=== PATIENT | female | born 1955 | race African-American/Black ===

== ENCOUNTER 2021-04-03 11:01 | Emergency (ER) | payer MEDICARE ==
[2021-04-03 12:31] LABS: #Monocytes 0.6 10x3/uL (0.0-1.1); #Neutrophils 5.3 10x3/uL (1.5-8.4); %Basophils 0.3 % (0.0-2.0); %Eosinophils 0.6 % (0.0-6.0); %Lymphocytes 14.6 % (18.0-47.0); %Monocytes 8.3 % (0.0-10.0); %Neutrophils 75.8 % (40.0-75.0); Mean Corpuscular HGB CONC 32.5 g/dL (32.0-36.0); Mean Corpuscular Hemoglobin 27.5 pg (27.0-33.0); Mean Corpuscular Volume 84.5 fl (81.6-98.3); Mean Platelet Volume 9.6 fl (7.4-10.4); Platelet Count 282 10x3/uL (150-450); RBC Distribution Width 14.4 % (11.5-14.5)
[2021-04-03 12:45] LABS: ALT (SGPT) 29 U/L (8-55); AST (SGOT) 26 U/L (5-34); Albumin 4.5 g/dL (3.4-4.8); Alkaline Phosphatase 117 U/L (40-110); Anion Gap 15 mmol/L (10-20); BUN (Urea Nitrogen) 20 mg/dL (9.8-20.1); Bilirubin, Total 0.7 mg/dL (0.2-1.2); Calc. Creatinine Clearance 0 mL/min (70-130); Calcium 9.3 mg/dL (7.8-10.44); Carbon Dioxide 29 mmol/L (23-31); Chloride 91 mmol/L (98-107); Glucose 116 mg/dL (80-115); Potassium 3.3 mmol/L (3.5-5.1); Protein, Total 7.5 g/dL (5.8-8.1); Sodium 132 mmol/L (136-145)
== END 2021-04-03 14:30 | disposition home or self-care (01) ==
LOC: CSHERS 11:01
DX: I10 Essential (primary) hypertension (principal); E78.5 Hyperlipidemia, unspecified; Z79.899 Other long term (current) drug therapy
CPT/HCPCS: 80053; 84484; 85025; 93005

== ENCOUNTER 2021-04-13 09:45 | Inpatient (IN) | payer MEDICARE ==
[2021-04-13 10:48] LABS: #Monocytes 0.7 10x3/uL (0.0-1.1); #Neutrophils 12.3 10x3/uL (1.5-8.4); %Basophils 0.1 % (0.0-2.0); %Eosinophils 0.1 % (0.0-6.0); %Lymphocytes 4.6 % (18.0-47.0); %Monocytes 4.9 % (0.0-10.0); %Neutrophils 89.8 % (40.0-75.0); Hemoglobin 10.3 g/dL (12.0-15.5); Mean Corpuscular HGB CONC 34.3 g/dL (32.0-36.0); Mean Corpuscular Hemoglobin 27.4 pg (27.0-33.0); Mean Corpuscular Volume 79.8 fl (81.6-98.3); Mean Platelet Volume 9.7 fl (7.4-10.4); Platelet Count 296 10x3/uL (150-450); RBC Distribution Width 13.2 % (11.5-14.5); Red Blood Cell (RBC) Count 3.76 10x6/uL (3.90-5.03); White Blood Cell (WBC) Count 13.8 10x3/uL (3.5-10.5)
[2021-04-13 11:02] LABS: ALT (SGPT) 25 U/L (8-55); AST (SGOT) 42 U/L (5-34); Albumin 4.4 g/dL (3.4-4.8); Alkaline Phosphatase 100 U/L (40-110); Anion Gap 19 mmol/L (10-20); BUN (Urea Nitrogen) 26 mg/dL (9.8-20.1); Bilirubin, Total 1.5 mg/dL (0.2-1.2); Calc. Creatinine Clearance 0 mL/min (70-130); Calcium 8.8 mg/dL (7.8-10.44); Carbon Dioxide 25 mmol/L (23-31); Chloride 77 mmol/L (98-107); Glucose 116 mg/dL (80-115); Potassium 3.4 mmol/L (3.5-5.1); Protein, Total 7.4 g/dL (5.8-8.1)
[2021-04-13 11:06] LABS: Sodium 118 mmol/L (136-145)
[2021-04-13] MEDS ORDERED: Hydrochlorothiazide 25 MG TAB PO SCH (11:15)
[2021-04-13] MEDS ORDERED: Lorazepam 2 MG/ML VIAL ONE (11:27)
[2021-04-13] MEDS ORDERED: Potassium Chloride 20 MEQ TAB ONE (12:10)
[2021-04-13 12:33] LABS: Magnesium 1.2 mg/dL (1.6-2.6)
[2021-04-13] MEDS ORDERED: Magnesium 2 GM/50 ML BAG (IN WATER) ONE (12:54)
[2021-04-13 13:26] LABS: Lactic Acid 1.7 mmol/L (0.5-2.2)
[2021-04-13 13:48] LABS: SARS-CoV-2 NAA Rapid Test Not Detected (NotDetected)
[2021-04-13 14:31] LABS: Anion Gap 18 mmol/L (10-20); BUN (Urea Nitrogen) 22 mg/dL (9.8-20.1); Calc. Creatinine Clearance 0 mL/min (70-130); Calcium 8.9 mg/dL (7.8-10.44); Carbon Dioxide 25 mmol/L (23-31); Chloride 78 mmol/L (98-107); Glucose 106 mg/dL (80-115); Magnesium 1.9 mg/dL (1.6-2.6); Potassium 3.2 mmol/L (3.5-5.1)
[2021-04-13 14:37] LABS: Sodium 118 mmol/L (136-145)
[2021-04-13] MEDS ORDERED: Sodium Chloride 0.9% 1,000 ML IV SCH ×2 (15:00→23:59)
[2021-04-13] MEDS ORDERED: Pharmacy to Dose ABX/VANCOMYCIN IVPB PRN (15:05)
[2021-04-13 15:44] LABS: Bilirubin Neg (Negative); Blood, Urine 25 (Negative); Clarity Clear (Clear); Glucose, Urine (Dipstick) Normal (Negative); Ketone, Urine Negative (Negative); Leukocyte 500 (Negative); Nitrite Negative (Negative); Protein, Urine (Dipstick) 15 mg/dl (Neg-Trace); Urobilinogen Normal mg/dL (Less than 2)
[2021-04-13 15:46] LABS: Urine Culture Reflex No No
[2021-04-13 15:50] LABS: Cardiac Risk 3.4 (Less than 4.5)
[2021-04-13 15:58] LABS: WBC/HPF 21-50 HPF (0-3)
[2021-04-13 15:59] LABS: Bacteria/HPF 1+ HPF (None Seen); Squamous Epithelial 0-3 HPF (0-3)
[2021-04-13] MEDS ORDERED: hydrALAZINE 20 MG/ML VIAL SLOW IVP PRN (17:29)
[2021-04-13] MEDS ORDERED: Potassium Chloride 20 MEQ TAB PO SCH (17:45)
[2021-04-13 18:27] LABS: Sodium 121 mmol/L (136-145)
[2021-04-13 19:15] LABS: Actual Bicarbonate (HCO3a) 23.6 mEq/L (22-28); Base Excess (BEa) 1.4 mEq/L (-2.0 to +3.0); CO2 Tension 29.4 mmHg (35.0-45.0); Calcium, Ionized (arterial) 1.02 mmol/L (1.12-1.30); Carboxyhemoglobin (COHb) 0.1 gm% (0.0-3.0); Hemoglobin (Hb) 10.5 g/dL (12.0-16.0); O2 Tension (PaO2), arterial 102.8 mmHg (> 80.0); Potassium - ABG Lab 3.2 mmol/L (3.70-5.30); Puncture Site LRA; pH, Arterial 7.52 (7.35-7.45)
[2021-04-13 19:44] LABS: Anion Gap 16 mmol/L (10-20); BUN (Urea Nitrogen) 19 mg/dL (9.8-20.1); Calc. Creatinine Clearance 0 mL/min (70-130); Calcium 8.6 mg/dL (7.8-10.44); Carbon Dioxide 27 mmol/L (23-31); Chloride 82 mmol/L (98-107); Glucose 101 mg/dL (80-115); Potassium 3.3 mmol/L (3.5-5.1); Sodium 122 mmol/L (136-145)
[2021-04-13] MEDS: Cefepime 1 GM in Sodium Chloride 0.9% 100 ML IVPB SCH (21:30)
[2021-04-13] MEDS ORDERED: VANCOMYCIN 1.75 GM/350 ML BAG 1.75 GM in Premix Bag 1 BAG IVPB SCH (23:45)
[2021-04-13 23:47] LABS: Sodium 122 mmol/L (136-145)
[2021-04-14] MEDS: Ondansetron PF 4 MG/2 ML Vial IVP PRN ×2 (01:32→10:03)
[2021-04-14 04:49] LABS: Anion Gap 17 mmol/L (10-20); BUN (Urea Nitrogen) 19 mg/dL (9.8-20.1); Calc. Creatinine Clearance 0 mL/min (70-130); Calcium 8.5 mg/dL (7.8-10.44); Carbon Dioxide 25 mmol/L (23-31); Chloride 86 mmol/L (98-107); Glucose 100 mg/dL (80-115); Potassium 3.2 mmol/L (3.5-5.1); Sodium 125 mmol/L (136-145)
[2021-04-14] MEDS ORDERED: Cefepime 2 GM in Sodium Chloride 0.9% 100 ML IVPB SCH (09:30)
[2021-04-14] MEDS ORDERED: Potassium Chloride 20 MEQ TAB PO SCH (12:00)
[2021-04-14] MEDS: Acetaminophen 325 MG TAB PO PRN (12:35)
[2021-04-14 13:00] LABS: Potassium, Urine 21.1 mmol/L
[2021-04-14 16:23] LABS: Potassium 3.3 mmol/L (3.5-5.1)
[2021-04-14] MEDS: Cefepime 1 GM in Sodium Chloride 0.9% 100 ML IVPB SCH (21:28)
[2021-04-14] MEDS: Cefepime 2 GM in Sodium Chloride 0.9% 100 ML IVPB SCH (21:40)
[2021-04-15] MEDS: Vancomycin 1.5 GRAM/300 ML BAG 1.5 GM in Premix Bag 1 BAG IVPB SCH (00:52)
[2021-04-15] MEDS ORDERED: VANCOMYCIN 1.75 GM/350 ML BAG 1.75 GM in Premix Bag 1 BAG IVPB SCH (01:00)
[2021-04-15 04:51] LABS: Anion Gap 15 mmol/L (10-20); BUN (Urea Nitrogen) 13 mg/dL (9.8-20.1); Calc. Creatinine Clearance 108 mL/min (70-130); Calcium 8.8 mg/dL (7.8-10.44); Carbon Dioxide 28 mmol/L (23-31); Chloride 98 mmol/L (98-107); Glucose 76 mg/dL (80-115); Potassium 3.4 mmol/L (3.5-5.1); Sodium 138 mmol/L (136-145)
[2021-04-15] MEDS: Dextrose 5% in Water 1,000 ML IV SCH ×2 (08:55→20:35)
[2021-04-15] MEDS: Cefepime 2 GM in Sodium Chloride 0.9% 100 ML IVPB SCH ×2 (08:55→22:11)
[2021-04-15 11:09] LABS: Potassium 3.4 mmol/L (3.5-5.1)
[2021-04-15] MEDS: Acetaminophen 325 MG TAB PO PRN (11:48)
[2021-04-15 15:48] LABS: Potassium 3.2 mmol/L (3.5-5.1)
[2021-04-15] MEDS ORDERED: Potassium Chloride 20 MEQ TAB PO SCH (21:15)
[2021-04-16 00:34] LABS: Vancomycin, Trough 9.7 ug/mL
[2021-04-16] MEDS: Vancomycin 1.5 GRAM/300 ML BAG 1.5 GM in Premix Bag 1 BAG IVPB SCH (01:17)
[2021-04-16] MEDS: Acetaminophen 325 MG TAB PO PRN (01:26)
[2021-04-16 05:53] LABS: Anion Gap 15 mmol/L (10-20); BUN (Urea Nitrogen) 13 mg/dL (9.8-20.1); Calc. Creatinine Clearance 121 mL/min (70-130); Calcium 8.2 mg/dL (7.8-10.44); Carbon Dioxide 25 mmol/L (23-31); Chloride 96 mmol/L (98-107); Glucose 87 mg/dL (80-115); Potassium 3.6 mmol/L (3.5-5.1); Sodium 132 mmol/L (136-145)
[2021-04-16] MEDS ORDERED: Potassium Chloride 20 MEQ TAB PO SCH (08:00)
[2021-04-16] MEDS ORDERED: Amlodipine 5 MG TAB PO SCH (09:30)
[2021-04-16] MEDS: Cefepime 2 GM in Sodium Chloride 0.9% 100 ML IVPB SCH (11:05)
[2021-04-16 12:59] LABS: #Basophils 0.1 10x3/uL (0.0-0.2); #Eosinphils 0.1 10x3/uL (0.0-0.5); #Monocytes 0.7 10x3/uL (0.0-1.1); #Neutrophils 8.3 10x3/uL (1.5-8.4); %Basophils 0.5 % (0.0-2.0); %Eosinophils 1.4 % (0.0-6.0); %Lymphocytes 10.6 % (18.0-47.0); %Monocytes 6.9 % (0.0-10.0); %Neutrophils 80.3 % (40.0-75.0); Hemoglobin 10.3 g/dL (12.0-15.5); Mean Corpuscular HGB CONC 32.9 g/dL (32.0-36.0); Mean Corpuscular Hemoglobin 27.4 pg (27.0-33.0); Mean Corpuscular Volume 83.2 fl (81.6-98.3); Mean Platelet Volume 9.7 fl (7.4-10.4); Platelet Count 307 10x3/uL (150-450); RBC Distribution Width 14.2 % (11.5-14.5); Red Blood Cell (RBC) Count 3.76 10x6/uL (3.90-5.03); White Blood Cell (WBC) Count 10.4 10x3/uL (3.5-10.5)
[2021-04-16 15:50] VITALS: BP 131/61; TEMP 97.9
[2021-04-16 18:44] LABS: Hemoglobin A1c 5.8 % (4.0-6.0)
[2021-04-17] MEDS ORDERED: VANCOMYCIN 1.75 GM/350 ML BAG 1.75 GM in Premix Bag 1 BAG IVPB SCH (01:00)
[2021-04-17] MEDS ORDERED: Amlodipine 5 MG TAB PO SCH (09:00)
== END 2021-04-16 16:20 | disposition home or self-care (01) | DRG 641 ==
LOC: CSHERS 09:45 → CSHTELE 17:21
PROVIDERS: ADMIT Family Medicine; ATTEND Physician Assistant
DX: E87.1 Hypo-osmolality and hyponatremia (principal); R65.10 Systemic inflammatory response syndrome (SIRS) of non-infectious origin without acute organ dysfunction; Z20.822 Contact with and (suspected) exposure to COVID-19; I10 Essential (primary) hypertension; E11.9 Type 2 diabetes mellitus without complications; E83.42 Hypomagnesemia; E87.8 Other disorders of electrolyte and fluid balance, not elsewhere classified; E87.3 Alkalosis; D64.9 Anemia, unspecified; E87.6 Hypokalemia; E78.5 Hyperlipidemia, unspecified; Z85.41 Personal history of malignant neoplasm of cervix uteri
CPT/HCPCS: 36415; 36416; 36600; 71045; 71275; 80048; 80053; 80061; 80202; 82088; 82436; 82533; 82805; 83036; 83605; 83735; 83880; 83930; 83935; 84133; 84300; 84443; 84484; 84540; 84560; 85025; 87040; 87086; 93005; 93306; 94760; J0692; J2060; J2405; J2597; J3370; J3475; J3490; J7050; J7070; U0002

== ENCOUNTER 2022-05-19 13:03 | Inpatient (IN) | payer MEDICARE, OTHER ==
[2022-05-19 13:39] LABS: #Eosinphils 0.1 10x3/uL (0.0-0.5); #Monocytes 0.4 10x3/uL (0.0-1.1); #Neutrophils 4.1 10x3/uL (1.5-8.4); %Basophils 0.5 % (0.0-2.0); %Eosinophils 0.9 % (0.0-6.0); %Lymphocytes 18.3 % (18.0-47.0); %Monocytes 6.6 % (0.0-10.0); %Neutrophils 73.5 % (40.0-75.0); Hemoglobin 11.2 g/dL (12.0-15.5); Mean Corpuscular HGB CONC 32.5 g/dL (32.0-36.0); Mean Corpuscular Hemoglobin 27.3 pg (27.0-33.0); Mean Corpuscular Volume 83.9 fl (81.6-98.3); Mean Platelet Volume 9.1 fl (7.4-10.4); Platelet Count 367 10x3/uL (150-450); RBC Distribution Width 14.7 % (11.5-14.5); Red Blood Cell (RBC) Count 4.11 10x6/uL (3.90-5.03); White Blood Cell (WBC) Count 5.6 10x3/uL (3.5-10.5)
[2022-05-19 13:53] LABS: ALT (SGPT) 21 U/L (8-55); AST (SGOT) 23 U/L (5-34); Albumin 4.2 g/dL (3.4-4.8); Alkaline Phosphatase 118 U/L (40-110); Anion Gap 13 mmol/L (10-20); BUN (Urea Nitrogen) 9 mg/dL (9.8-20.1); Bilirubin, Total 0.5 mg/dL (0.2-1.2); Calc. Creatinine Clearance 0 mL/min (70-130); Calcium 9.6 mg/dL (7.8-10.44); Carbon Dioxide 30 mmol/L (23-31); Chloride 101 mmol/L (98-107); Estimated GFR 83; Globulin 3.5 g/dL (2.4-3.5); Glucose 120 mg/dL (80-115); Lipase 30 U/L (8-78); Potassium 3.4 mmol/L (3.5-5.1); Protein, Total 7.7 g/dL (5.8-8.1); Sodium 141 mmol/L (136-145)
[2022-05-19] MEDS ORDERED: Furosemide 40 MG/4 ML VIAL ONE (15:41)
[2022-05-19] MEDS ORDERED: Senokot S 8.6-50 MG TAB PO PRN (16:29)
[2022-05-19] MEDS ORDERED: Ondansetron ODT 4 MG TAB PO PRN (16:29)
[2022-05-19] MEDS ORDERED: Ondansetron PF 4 MG/2 ML Vial IVP PRN (16:29)
[2022-05-19 16:59] LABS: Bilirubin Neg (Negative); Blood, Urine 25 (Negative); Clarity Clear (Clear); Glucose, Urine (Dipstick) Normal (Negative); Ketone, Urine Negative (Negative); Leukocyte 500 (Negative); Nitrite Negative (Negative); Protein, Urine (Dipstick) Negative (Neg-Trace); Specific Gravity, Urine 1.005 (1.005-1.030); Urobilinogen Normal mg/dL (Less than 2)
[2022-05-19 17:07] LABS: Bacteria/HPF 1+ HPF (None Seen)
[2022-05-19 17:10] LABS: SARS-CoV-2 NAA Rapid Test Not Detected (NotDetected)
[2022-05-19 20:00] LABS: Magnesium 1.9 mg/dL (1.6-2.6)
[2022-05-19] MEDS ORDERED: Potassium Chloride 20 MEQ TAB PO SCH (20:00)
[2022-05-19] MEDS: Famotidine 20 MG TAB PO SCH (20:36)
[2022-05-19] MEDS: Atorvastatin Calcium 10 MG TAB PO SCH (20:36)
[2022-05-19] MEDS: Acetaminophen 325 MG TAB PO PRN (23:55)
[2022-05-20 04:54] LABS: Anion Gap 13 mmol/L (10-20); BUN (Urea Nitrogen) 8 mg/dL (9.8-20.1); Calc. Creatinine Clearance 0 mL/min (70-130); Calcium 9.3 mg/dL (7.8-10.44); Carbon Dioxide 30 mmol/L (23-31); Chloride 101 mmol/L (98-107); Estimated GFR 95; Glucose 92 mg/dL (80-115); Potassium 3.3 mmol/L (3.5-5.1); Sodium 141 mmol/L (136-145)
[2022-05-20 05:33] LABS: #Monocytes 0.5 10x3/uL (0.0-1.1); #Neutrophils 4.5 10x3/uL (1.5-8.4); %Basophils 0.5 % (0.0-2.0); %Eosinophils 0.5 % (0.0-6.0); %Lymphocytes 20.7 % (18.0-47.0); %Monocytes 8.2 % (0.0-10.0); %Neutrophils 69.9 % (40.0-75.0); Hemoglobin 11.1 g/dL (12.0-15.5); Mean Corpuscular HGB CONC 32.3 g/dL (32.0-36.0); Mean Corpuscular Hemoglobin 27.3 pg (27.0-33.0); Mean Corpuscular Volume 84.5 fl (81.6-98.3); Mean Platelet Volume 9.7 fl (7.4-10.4); Platelet Count 358 10x3/uL (150-450); RBC Distribution Width 14.7 % (11.5-14.5); Red Blood Cell (RBC) Count 4.07 10x6/uL (3.90-5.03); White Blood Cell (WBC) Count 6.4 10x3/uL (3.5-10.5)
[2022-05-20] MEDS ORDERED: Furosemide 40 MG/4 ML VIAL SLOW IVP SCH (06:00)
[2022-05-20] MEDS ORDERED: Electrolyte Replacement Protocol 1 EACH FS SCH (07:45)
[2022-05-20] MEDS ORDERED: Magnesium 2 GM/50 ML(in water) 2 GM in Premix Bag 1 BAG IVPB SCH (07:45)
[2022-05-20] MEDS ORDERED: Potassium Chloride 20 MEQ TAB PO SCH (08:00)
[2022-05-20] MEDS: Ferrous Sulfate 325 MG TAB PO SCH (08:21)
[2022-05-20] MEDS: Famotidine 20 MG TAB PO SCH ×2 (08:22→20:37)
[2022-05-20] MEDS: Losartan 25 MG TAB PO SCH (08:23)
[2022-05-20] MEDS: Acetaminophen 325 MG TAB PO PRN (08:25)
[2022-05-20] MEDS ORDERED: Carvedilol 6.25 MG TAB PO SCH ×2 (09:45→17:00)
[2022-05-20] MEDS: Carvedilol 12.5 MG TAB PO SCH (16:20)
[2022-05-20] MEDS: HYDROcodone/Acetaminophen 5/325 mg Tablet PO PRN (16:20)
[2022-05-20] MEDS: cefTRIAXone\\ROCEPHIN 1 GM in Sodium Chloride 0.9% 100 ML IVPB SCH (16:57)
[2022-05-20] MEDS: Atorvastatin Calcium 10 MG TAB PO SCH (20:36)
[2022-05-20] MEDS: Apixaban 5 MG TAB PO SCH (20:37)
[2022-05-20] MEDS: Senokot S 8.6-50 MG TAB PO SCH (20:37)
[2022-05-21 05:05] LABS: #Monocytes 0.6 10x3/uL (0.0-1.1); #Neutrophils 5.1 10x3/uL (1.5-8.4); %Basophils 0.3 % (0.0-2.0); %Eosinophils 0.6 % (0.0-6.0); %Lymphocytes 16.7 % (18.0-47.0); %Monocytes 8.6 % (0.0-10.0); %Neutrophils 73.5 % (40.0-75.0); Hemoglobin 10.9 g/dL (12.0-15.5); Mean Corpuscular HGB CONC 31.6 g/dL (32.0-36.0); Mean Corpuscular Hemoglobin 27.1 pg (27.0-33.0); Mean Corpuscular Volume 85.8 fl (81.6-98.3); Mean Platelet Volume 9.4 fl (7.4-10.4); Platelet Count 292 10x3/uL (150-450); RBC Distribution Width 14.9 % (11.5-14.5); Red Blood Cell (RBC) Count 4.02 10x6/uL (3.90-5.03)
[2022-05-21 05:17] LABS: Anion Gap 15 mmol/L (10-20); BUN (Urea Nitrogen) 16 mg/dL (9.8-20.1); Calc. Creatinine Clearance 99 mL/min (70-130); Calcium 9.3 mg/dL (7.8-10.44); Carbon Dioxide 28 mmol/L (23-31); Chloride 102 mmol/L (98-107); Estimated GFR 88; Glucose 86 mg/dL (80-115); Magnesium 2.5 mg/dL (1.6-2.6); Potassium 3.7 mmol/L (3.5-5.1); Sodium 141 mmol/L (136-145)
[2022-05-21] MEDS ORDERED: Polyethylene Glycol 3350 17 GM Packet PO PRN (08:08)
[2022-05-21] MEDS: Potassium Chloride 20 MEQ TAB PO SCH (09:54)
[2022-05-21] MEDS: Losartan 25 MG TAB PO SCH (09:55)
[2022-05-21] MEDS: Furosemide 40 MG TAB PO SCH (09:55)
[2022-05-21] MEDS: Senokot S 8.6-50 MG TAB PO SCH ×3 (09:56→20:16)
[2022-05-21] MEDS: Ferrous Sulfate 325 MG TAB PO SCH (09:56)
[2022-05-21] MEDS: Famotidine 20 MG TAB PO SCH ×2 (09:56→20:16)
[2022-05-21] MEDS: Apixaban 5 MG TAB PO SCH ×2 (09:56→20:18)
[2022-05-21] MEDS: Carvedilol 12.5 MG TAB PO SCH ×2 (09:57→16:39)
[2022-05-21] MEDS: cefTRIAXone\\ROCEPHIN 1 GM in Sodium Chloride 0.9% 100 ML IVPB SCH (16:39)
[2022-05-21] MEDS: Atorvastatin Calcium 10 MG TAB PO SCH (20:14)
[2022-05-22] MEDS: Acetaminophen 325 MG TAB PO PRN ×2 (05:40→10:46)
[2022-05-22 06:23] LABS: Anion Gap 14 mmol/L (10-20); BUN (Urea Nitrogen) 18 mg/dL (9.8-20.1); Calc. Creatinine Clearance 117 mL/min (70-130); Calcium 9.1 mg/dL (7.8-10.44); Carbon Dioxide 25 mmol/L (23-31); Chloride 105 mmol/L (98-107); Estimated GFR 96; Glucose 91 mg/dL (80-115); Potassium 4.3 mmol/L (3.5-5.1); Sodium 140 mmol/L (136-145)
[2022-05-22 06:24] LABS: #Eosinphils 0.1 10x3/uL (0.0-0.5); #Monocytes 0.6 10x3/uL (0.0-1.1); #Neutrophils 5.7 10x3/uL (1.5-8.4); %Basophils 0.4 % (0.0-2.0); %Eosinophils 0.8 % (0.0-6.0); %Monocytes 8.3 % (0.0-10.0); %Neutrophils 76.4 % (40.0-75.0); Hemoglobin 10.6 g/dL (12.0-15.5); Mean Corpuscular HGB CONC 31.9 g/dL (32.0-36.0); Mean Corpuscular Volume 84.7 fl (81.6-98.3); Mean Platelet Volume 9.6 fl (7.4-10.4); Platelet Count 322 10x3/uL (150-450); RBC Distribution Width 15.2 % (11.5-14.5); Red Blood Cell (RBC) Count 3.92 10x6/uL (3.90-5.03); White Blood Cell (WBC) Count 7.5 10x3/uL (3.5-10.5)
[2022-05-22] MEDS: Furosemide 40 MG TAB PO SCH (09:05)
[2022-05-22] MEDS: Losartan 25 MG TAB PO SCH (09:05)
[2022-05-22] MEDS: Ferrous Sulfate 325 MG TAB PO SCH (09:05)
[2022-05-22] MEDS: Famotidine 20 MG TAB PO SCH ×2 (09:05→21:12)
[2022-05-22] MEDS: Apixaban 5 MG TAB PO SCH ×2 (09:05→21:13)
[2022-05-22] MEDS: Potassium Chloride 20 MEQ TAB PO SCH (09:05)
[2022-05-22] MEDS: Carvedilol 12.5 MG TAB PO SCH ×2 (09:06→16:39)
[2022-05-22] MEDS: Senokot S 8.6-50 MG TAB PO SCH ×2 (09:09→21:12)
[2022-05-22] MEDS: cefTRIAXone\\ROCEPHIN 1 GM in Sodium Chloride 0.9% 100 ML IVPB SCH (16:36)
[2022-05-22] MEDS: Atorvastatin Calcium 10 MG TAB PO SCH (21:13)
[2022-05-23 04:01] LABS: #Eosinphils 0.1 10x3/uL (0.0-0.5); #Monocytes 0.5 10x3/uL (0.0-1.1); #Neutrophils 6.2 10x3/uL (1.5-8.4); %Basophils 0.5 % (0.0-2.0); %Lymphocytes 13.2 % (18.0-47.0); %Neutrophils 78.9 % (40.0-75.0); Hemoglobin 10.9 g/dL (12.0-15.5); Mean Corpuscular HGB CONC 32.2 g/dL (32.0-36.0); Mean Corpuscular Hemoglobin 27.2 pg (27.0-33.0); Mean Corpuscular Volume 84.5 fl (81.6-98.3); Mean Platelet Volume 9.1 fl (7.4-10.4); Platelet Count 313 10x3/uL (150-450); RBC Distribution Width 14.9 % (11.5-14.5); Red Blood Cell (RBC) Count 4.01 10x6/uL (3.90-5.03); White Blood Cell (WBC) Count 7.8 10x3/uL (3.5-10.5)
[2022-05-23 04:27] LABS: Anion Gap 15 mmol/L (10-20); BUN (Urea Nitrogen) 18 mg/dL (9.8-20.1); Calc. Creatinine Clearance 119 mL/min (70-130); Calcium 9.3 mg/dL (7.8-10.44); Carbon Dioxide 23 mmol/L (23-31); Chloride 106 mmol/L (98-107); Estimated GFR 96; Glucose 99 mg/dL (80-115); Potassium 4.3 mmol/L (3.5-5.1); Sodium 140 mmol/L (136-145)
[2022-05-23] MEDS: Acetaminophen 325 MG TAB PO PRN ×2 (05:14→10:12)
[2022-05-23] MEDS: Furosemide 40 MG TAB PO SCH (06:01)
[2022-05-23] MEDS: Ferrous Sulfate 325 MG TAB PO SCH (10:06)
[2022-05-23] MEDS: Carvedilol 12.5 MG TAB PO SCH ×2 (10:06→17:15)
[2022-05-23] MEDS: Famotidine 20 MG TAB PO SCH ×2 (10:06→20:32)
[2022-05-23] MEDS: Apixaban 5 MG TAB PO SCH ×2 (10:07→20:32)
[2022-05-23] MEDS: Senokot S 8.6-50 MG TAB PO SCH ×3 (10:07→20:33)
[2022-05-23] MEDS: Potassium Chloride 20 MEQ TAB PO SCH (10:08)
[2022-05-23] MEDS: Losartan 25 MG TAB PO SCH (10:08)
[2022-05-23] MEDS: Atorvastatin Calcium 10 MG TAB PO SCH (20:33)
[2022-05-24 04:41] LABS: #Eosinphils 0.1 10x3/uL (0.0-0.5); #Monocytes 0.5 10x3/uL (0.0-1.1); #Neutrophils 5.2 10x3/uL (1.5-8.4); %Basophils 0.4 % (0.0-2.0); %Lymphocytes 16.5 % (18.0-47.0); %Monocytes 7.5 % (0.0-10.0); %Neutrophils 74.3 % (40.0-75.0); Hemoglobin 11.8 g/dL (12.0-15.5); Mean Corpuscular HGB CONC 32.6 g/dL (32.0-36.0); Mean Corpuscular Hemoglobin 27.3 pg (27.0-33.0); Mean Corpuscular Volume 83.6 fl (81.6-98.3); Mean Platelet Volume 9.5 fl (7.4-10.4); Platelet Count 372 10x3/uL (150-450); RBC Distribution Width 14.8 % (11.5-14.5); Red Blood Cell (RBC) Count 4.33 10x6/uL (3.90-5.03); White Blood Cell (WBC) Count 7.1 10x3/uL (3.5-10.5)
[2022-05-24 04:56] LABS: Anion Gap 14 mmol/L (10-20); BUN (Urea Nitrogen) 18 mg/dL (9.8-20.1); Calc. Creatinine Clearance 106 mL/min (70-130); Calcium 9.3 mg/dL (7.8-10.44); Carbon Dioxide 25 mmol/L (23-31); Chloride 103 mmol/L (98-107); Estimated GFR 91; Glucose 93 mg/dL (80-115); Sodium 137 mmol/L (136-145)
[2022-05-24 04:57] LABS: Potassium 4.7 mmol/L (3.5-5.1)
[2022-05-24] MEDS: Ferrous Sulfate 325 MG TAB PO SCH (10:04)
[2022-05-24] MEDS: Carvedilol 12.5 MG TAB PO SCH ×2 (10:05→10:09)
[2022-05-24] MEDS: Potassium Chloride 20 MEQ TAB PO SCH (10:05)
[2022-05-24] MEDS: Furosemide 40 MG TAB PO SCH (10:05)
[2022-05-24] MEDS: Losartan 25 MG TAB PO SCH (10:05)
[2022-05-24] MEDS: Apixaban 5 MG TAB PO SCH ×2 (10:05→20:51)
[2022-05-24] MEDS: Famotidine 20 MG TAB PO SCH ×2 (10:05→20:50)
[2022-05-24] MEDS: Senokot S 8.6-50 MG TAB PO SCH ×3 (10:06→20:59)
[2022-05-24] MEDS: Acetaminophen 325 MG TAB PO PRN ×2 (10:11→18:52)
[2022-05-24] MEDS: Atorvastatin Calcium 10 MG TAB PO SCH (20:50)
[2022-05-25] MEDS: Senokot S 8.6-50 MG TAB PO SCH ×2 (09:48→20:20)
[2022-05-25] MEDS: Acetaminophen 325 MG TAB PO PRN (09:48)
[2022-05-25] MEDS: Ferrous Sulfate 325 MG TAB PO SCH (09:48)
[2022-05-25] MEDS: Furosemide 40 MG TAB PO SCH (09:49)
[2022-05-25] MEDS: Losartan 25 MG TAB PO SCH (09:49)
[2022-05-25] MEDS: Carvedilol 12.5 MG TAB PO SCH (09:49)
[2022-05-25] MEDS: Famotidine 20 MG TAB PO SCH ×2 (09:49→20:20)
[2022-05-25] MEDS: Apixaban 5 MG TAB PO SCH ×2 (09:49→20:20)
[2022-05-25] MEDS: HYDROcodone/Acetaminophen 5/325 mg Tablet PO PRN (10:32)
[2022-05-25] MEDS ORDERED: Sodium Chloride 0.9% 500 ML IV SCH ×2 (12:15→13:45)
[2022-05-25] MEDS: Carvedilol 3.125 MG TAB PO SCH (17:41)
[2022-05-25] MEDS: Atorvastatin Calcium 10 MG TAB PO SCH (20:20)
[2022-05-26] MEDS: Acetaminophen 325 MG TAB PO PRN (01:11)
[2022-05-26 04:47] LABS: Anion Gap 14 mmol/L (10-20); BUN (Urea Nitrogen) 24 mg/dL (9.8-20.1); Calc. Creatinine Clearance 91 mL/min (70-130); Carbon Dioxide 22 mmol/L (23-31); Chloride 104 mmol/L (98-107); Estimated GFR 79; Glucose 121 mg/dL (80-115); Potassium 3.8 mmol/L (3.5-5.1); Sodium 136 mmol/L (136-145)
[2022-05-26 04:48] LABS: #Eosinphils 0.1 10x3/uL (0.0-0.5); #Monocytes 0.8 10x3/uL (0.0-1.1); #Neutrophils 6.6 10x3/uL (1.5-8.4); %Basophils 0.4 % (0.0-2.0); %Eosinophils 1.2 % (0.0-6.0); %Lymphocytes 17.6 % (18.0-47.0); %Monocytes 9.1 % (0.0-10.0); %Neutrophils 71.5 % (40.0-75.0); Hemoglobin 10.7 g/dL (12.0-15.5); Mean Corpuscular HGB CONC 32.5 g/dL (32.0-36.0); Mean Corpuscular Hemoglobin 27.4 pg (27.0-33.0); Mean Corpuscular Volume 84.1 fl (81.6-98.3); Mean Platelet Volume 9.4 fl (7.4-10.4); Platelet Count 346 10x3/uL (150-450); RBC Distribution Width 14.6 % (11.5-14.5); Red Blood Cell (RBC) Count 3.91 10x6/uL (3.90-5.03); White Blood Cell (WBC) Count 9.3 10x3/uL (3.5-10.5)
[2022-05-26] MEDS: Senokot S 8.6-50 MG TAB PO SCH ×2 (08:00→22:00)
[2022-05-26] MEDS: Apixaban 5 MG TAB PO SCH ×2 (09:10→22:00)
[2022-05-26] MEDS: Carvedilol 3.125 MG TAB PO SCH (09:10)
[2022-05-26] MEDS: Famotidine 20 MG TAB PO SCH ×2 (09:10→22:00)
[2022-05-26] MEDS: Ferrous Sulfate 325 MG TAB PO SCH (09:11)
[2022-05-26] MEDS: Atorvastatin Calcium 10 MG TAB PO SCH (22:00)
[2022-05-27] MEDS: Senokot S 8.6-50 MG TAB PO SCH ×2 (08:30→21:52)
[2022-05-27] MEDS: Apixaban 5 MG TAB PO SCH ×2 (08:31→21:39)
[2022-05-27] MEDS: Ferrous Sulfate 325 MG TAB PO SCH (08:31)
[2022-05-27] MEDS: Famotidine 20 MG TAB PO SCH ×2 (08:31→21:39)
[2022-05-27 08:46] LABS: Anion Gap 13 mmol/L (10-20); BUN (Urea Nitrogen) 20 mg/dL (9.8-20.1); Calc. Creatinine Clearance 109 mL/min (70-130); Calcium 9.3 mg/dL (7.8-10.44); Carbon Dioxide 26 mmol/L (23-31); Chloride 103 mmol/L (98-107); Estimated GFR 95; Glucose 79 mg/dL (80-115); Potassium 3.8 mmol/L (3.5-5.1); Sodium 138 mmol/L (136-145)
[2022-05-27] MEDS ORDERED: Magnesium 2 GM/50 ML(in water) 2 GM in Premix Bag 1 BAG IVPB SCH (09:00)
[2022-05-27] MEDS ORDERED: Potassium Chloride 20 MEQ TAB PO SCH (09:30)
[2022-05-27] MEDS: Atorvastatin Calcium 10 MG TAB PO SCH (21:40)
[2022-05-28 05:35] LABS: Anion Gap 12 mmol/L (10-20); BUN (Urea Nitrogen) 29 mg/dL (9.8-20.1); Calc. Creatinine Clearance 96 mL/min (70-130); Carbon Dioxide 25 mmol/L (23-31); Chloride 103 mmol/L (98-107); Estimated GFR 83; Glucose 114 mg/dL (80-115); Magnesium 2.4 mg/dL (1.6-2.6); Potassium 3.7 mmol/L (3.5-5.1); Sodium 136 mmol/L (136-145)
[2022-05-28 05:37] LABS: #Eosinphils 0.1 10x3/uL (0.0-0.5); #Monocytes 0.7 10x3/uL (0.0-1.1); #Neutrophils 5.8 10x3/uL (1.5-8.4); %Basophils 0.5 % (0.0-2.0); %Eosinophils 1.4 % (0.0-6.0); %Lymphocytes 16.9 % (18.0-47.0); %Monocytes 8.7 % (0.0-10.0); %Neutrophils 72.1 % (40.0-75.0); Mean Corpuscular HGB CONC 31.4 g/dL (32.0-36.0); Mean Corpuscular Hemoglobin 26.4 pg (27.0-33.0); Mean Corpuscular Volume 83.9 fl (81.6-98.3); Mean Platelet Volume 9.3 fl (7.4-10.4); Platelet Count 351 10x3/uL (150-450); RBC Distribution Width 14.7 % (11.5-14.5); Red Blood Cell (RBC) Count 4.17 10x6/uL (3.90-5.03); White Blood Cell (WBC) Count 8.1 10x3/uL (3.5-10.5)
[2022-05-28] MEDS: Apixaban 5 MG TAB PO SCH (09:15)
[2022-05-28] MEDS: Famotidine 20 MG TAB PO SCH (09:15)
[2022-05-28] MEDS: Ferrous Sulfate 325 MG TAB PO SCH (09:15)
[2022-05-28] MEDS: Senokot S 8.6-50 MG TAB PO SCH (09:15)
[2022-05-28 13:11] VITALS: BP 100/60; TEMP 97.5
== END 2022-05-28 14:51 | disposition home health service (06) | DRG 291 ==
LOC: CSHERS 13:03 → INTOOBSV 17:45 → CSHTELE 17:45 → OBSVTOIN 05-20 16:13
PROVIDERS: ADMIT Internal Medicine; ATTEND Internal Medicine
DX: I13.0 Hypertensive heart and chronic kidney disease with heart failure and stage 1 through stage 4 chronic kidney disease, or unspecified chronic kidney disease (principal); I50.33 Acute on chronic diastolic (congestive) heart failure; N39.0 Urinary tract infection, site not specified; I48.91 Unspecified atrial fibrillation; E78.5 Hyperlipidemia, unspecified; E87.6 Hypokalemia; E83.42 Hypomagnesemia; L97.519 Non-pressure chronic ulcer of other part of right foot with unspecified severity; I49.5 Sick sinus syndrome; I95.9 Hypotension, unspecified; B96.4 Proteus (mirabilis) (morganii) as the cause of diseases classified elsewhere; L97.529 Non-pressure chronic ulcer of other part of left foot with unspecified severity; Z20.822 Contact with and (suspected) exposure to COVID-19; N18.2 Chronic kidney disease, stage 2 (mild); D53.9 Nutritional anemia, unspecified; I08.1 Rheumatic disorders of both mitral and tricuspid valves; Z79.899 Other long term (current) drug therapy; Z98.890 Other specified postprocedural states; Z82.49 Family history of ischemic heart disease and other diseases of the circulatory system; Z83.3 Family history of diabetes mellitus; Z80.9 Family history of malignant neoplasm, unspecified; Z84.2 Family history of other diseases of the genitourinary system; Z91.018 Allergy to other foods; Z90.710 Acquired absence of both cervix and uterus
CPT/HCPCS: 36415; 71045; 80048; 80053; 81003; 81015; 83605; 83690; 83735; 83880; 84443; 84484; 85025; 87086; 87811; 93005; 93306; 93970; 94760; 96372; 96375; 96376; 97139; G0378; J0696; J1650; J1940; J3475; J3490; J7030; J7050; U0002

== ENCOUNTER 2022-10-20 11:57 | Inpatient (IN) | payer MEDICARE, OTHER ==
[2022-10-20 13:02] LABS: #Monocytes 0.2 10x3/uL (0.0-1.1); #Neutrophils 14.1 10x3/uL (1.5-8.4); %Basophils 0.1 % (0.0-2.0); %Eosinophils 0.1 % (0.0-6.0); %Monocytes 1.6 % (0.0-10.0); %Neutrophils 94.8 % (40.0-75.0); Hemoglobin 8.2 g/dL (12.0-15.5); Mean Corpuscular HGB CONC 31.5 g/dL (32.0-36.0); Mean Corpuscular Hemoglobin 26.2 pg (27.0-33.0); Mean Corpuscular Volume 83.1 fl (81.6-98.3); Mean Platelet Volume 9.3 fl (7.4-10.4); Platelet Count 318 10x3/uL (150-450); RBC Distribution Width 17.2 % (11.5-14.5); Red Blood Cell (RBC) Count 3.13 10x6/uL (3.90-5.03); White Blood Cell (WBC) Count 14.9 10x3/uL (3.5-10.5)
[2022-10-20] MEDS ORDERED: Ondansetron PF 4 MG/2 ML Vial ONE (13:18)
[2022-10-20] MEDS ORDERED: Morphine 4 MG/ML VIAL ONE (13:18)
[2022-10-20 13:19] LABS: ALT (SGPT) 17 U/L (8-55); AST (SGOT) 18 U/L (5-34); Albumin 3.5 g/dL (3.4-4.8); Alkaline Phosphatase 116 U/L (40-110); Anion Gap 16 mmol/L (10-20); BUN (Urea Nitrogen) 18 mg/dL (9.8-20.1); Bilirubin, Total 1.7 mg/dL (0.2-1.2); Calc. Creatinine Clearance 0 mL/min (70-130); Calcium 8.6 mg/dL (7.8-10.44); Carbon Dioxide 28 mmol/L (23-31); Chloride 94 mmol/L (98-107); Estimated GFR 73; Globulin 4.6 g/dL (2.4-3.5); Glucose 94 mg/dL (80-115); Potassium 2.7 mmol/L (3.5-5.1); Protein, Total 8.1 g/dL (5.8-8.1); Sodium 135 mmol/L (136-145)
[2022-10-20 14:39] LABS: Magnesium 1.6 mg/dL (1.6-2.6)
[2022-10-20] MEDS ORDERED: Vancomycin 1 GM VIAL ONE (15:02)
[2022-10-20] MEDS ORDERED: Cefepime 2 GM VIAL ONE (15:02)
[2022-10-20] MEDS ORDERED: Acetaminophen 500 MG TAB ONE (17:07)
[2022-10-20] MEDS ORDERED: Potassium Chloride 20 MEQ TAB ONE (17:30)
[2022-10-20 17:52] VITALS: BMI 34.5
[2022-10-20] MEDS ORDERED: Acetaminophen 325 MG TAB PO PRN (18:12)
[2022-10-20] MEDS ORDERED: Ondansetron PF 4 MG/2 ML Vial IVP PRN (18:12)
[2022-10-20] MEDS ORDERED: Ondansetron ODT 4 MG TAB PO PRN (18:13)
[2022-10-20] MEDS ORDERED: Senokot S 8.6-50 MG TAB PO PRN (19:45)
[2022-10-20] MEDS ORDERED: Potassium Chloride 20 MEQ TAB PO SCH (20:15)
[2022-10-20 20:42] LABS: INR-International Normal Ratio 1.3; PTT 34.6 sec (22.0-33.0); Prothrombin Time 13.5 sec (9.5-12.1)
[2022-10-20] MEDS ORDERED: Vancomycin HCl 1 GM in Sodium Chloride 0.9% 250 ML 250 ML IVPB SCH (21:00)
[2022-10-20] MEDS ORDERED: Atorvastatin Calcium 10 MG TAB PO SCH (21:00)
[2022-10-21 04:45] LABS: Anion Gap 14 mmol/L (10-20); BUN (Urea Nitrogen) 16 mg/dL (9.8-20.1); Calc. Creatinine Clearance 118 mL/min (70-130); Calcium 8.2 mg/dL (7.8-10.44); Carbon Dioxide 28 mmol/L (23-31); Chloride 98 mmol/L (98-107); Estimated GFR 94; Glucose 98 mg/dL (80-115); Potassium 2.9 mmol/L (3.5-5.1); Sodium 137 mmol/L (136-145)
[2022-10-21 05:10] LABS: Hemoglobin 7.7 g/dL (12.0-15.5); Mean Corpuscular HGB CONC 30.8 g/dL (32.0-36.0); Mean Corpuscular Hemoglobin 26.1 pg (27.0-33.0); Mean Corpuscular Volume 84.7 fl (81.6-98.3); Platelet Count 303 10x3/uL (150-450); RBC Distribution Width 17.2 % (11.5-14.5); Red Blood Cell (RBC) Count 2.95 10x6/uL (3.90-5.03); White Blood Cell (WBC) Count 13.2 10x3/uL (3.5-10.5)
[2022-10-21 05:11] LABS: MDiff Complete? YES
[2022-10-21] MEDS: Cefepime 1 GM in Sodium Chloride 0.9% 100 ML IVPB SCH ×2 (05:46→19:00)
[2022-10-21] MEDS: Potassium Chloride 20 MEQ TAB PO SCH ×2 (06:04→09:20)
[2022-10-21 06:32] LABS: Platelet Adequacy Comment Appears Adequate
[2022-10-21 06:33] LABS: RBC Morph Comment Within Normal Limits
[2022-10-21 06:38] LABS: Band 12 % (5-11); Lymphocytes 5 % (21-51); Monocytes 4 % (0-10); Neutrophil 79 % (42-75)
[2022-10-21] MEDS ORDERED: Potassium Chloride 20 MEQ TAB PO SCH (08:45)
[2022-10-21] MEDS: dilTIAZem CD 180 MG CAP PO SCH (09:19)
[2022-10-21] MEDS: Ferrous Sulfate 325 MG TAB PO SCH (09:19)
[2022-10-21] MEDS: Potassium Chloride 20 MEQ in Premix Bag 1 BAG IVPB SCH ×2 (09:20→11:12)
[2022-10-21] MEDS ORDERED: Acetaminophen 325 MG TAB PO PRN (14:14)
[2022-10-21] MEDS ORDERED: Ipratropium/Albuterol 3 ML NEB NEB SCH (14:15)
[2022-10-21 16:45] LABS: Hemoglobin 7.9 g/dL (12.0-15.5)
[2022-10-21 16:53] LABS: Anion Gap 14 mmol/L (10-20); Carbon Dioxide 27 mmol/L (23-31); Chloride 101 mmol/L (98-107); Potassium 3.8 mmol/L (3.5-5.1); Sodium 138 mmol/L (136-145)
[2022-10-21] MEDS: VANCOMYCIN 1.25 GM/250 ML BAG 1.25 GM in Premix Bag 1 BAG IVPB SCH (18:00)
[2022-10-21] MEDS: Atorvastatin Calcium 40 MG TAB PO SCH (20:40)
[2022-10-22] MEDS: Ipratropium/Albuterol 3 ML NEB NEB PRN ×3 (00:09→18:42)
[2022-10-22 04:53] LABS: #Eosinphils 0.1 10x3/uL (0.0-0.5); #Monocytes 0.6 10x3/uL (0.0-1.1); #Neutrophils 10.8 10x3/uL (1.5-8.4); %Basophils 0.2 % (0.0-2.0); %Eosinophils 0.7 % (0.0-6.0); %Lymphocytes 4.5 % (18.0-47.0); %Monocytes 4.9 % (0.0-10.0); %Neutrophils 88.8 % (40.0-75.0); Hemoglobin 7.9 g/dL (12.0-15.5); Mean Corpuscular HGB CONC 31.1 g/dL (32.0-36.0); Mean Corpuscular Hemoglobin 26.3 pg (27.0-33.0); Mean Corpuscular Volume 84.7 fl (81.6-98.3); Mean Platelet Volume 9.9 fl (7.4-10.4); Platelet Count 341 10x3/uL (150-450); RBC Distribution Width 17.6 % (11.5-14.5); White Blood Cell (WBC) Count 12.1 10x3/uL (3.5-10.5)
[2022-10-22 05:08] LABS: Anion Gap 13 mmol/L (10-20); BUN (Urea Nitrogen) 12 mg/dL (9.8-20.1); Calc. Creatinine Clearance 133 mL/min (70-130); Calcium 8.3 mg/dL (7.8-10.44); Carbon Dioxide 27 mmol/L (23-31); Chloride 101 mmol/L (98-107); Estimated GFR 97; Glucose 90 mg/dL (80-115); Magnesium 2.1 mg/dL (1.6-2.6); Potassium 3.4 mmol/L (3.5-5.1); Sodium 138 mmol/L (136-145)
[2022-10-22] MEDS: Cefepime 1 GM in Sodium Chloride 0.9% 100 ML IVPB SCH (05:37)
[2022-10-22] MEDS: Potassium Chloride 20 MEQ TAB PO SCH (08:45)
[2022-10-22] MEDS: VANCOMYCIN 1.25 GM/250 ML BAG 1.25 GM in Premix Bag 1 BAG IVPB SCH (09:43)
[2022-10-22] MEDS: Aspirin 81 mg Enteric Coated Tablet PO SCH (09:44)
[2022-10-22] MEDS: Ferrous Sulfate 325 MG TAB PO SCH (09:45)
[2022-10-22] MEDS: dilTIAZem CD 180 MG CAP PO SCH (09:45)
[2022-10-22 13:08] LABS: INR-International Normal Ratio 1.2; Prothrombin Time 12.4 sec (9.5-12.1)
[2022-10-22] MEDS ORDERED: Warfarin Sodium 5 MG TAB PO SCH (17:00)
[2022-10-22] MEDS: Cefepime 2 GM in Sodium Chloride 0.9% 100 ML IVPB SCH (17:14)
[2022-10-22] MEDS: Potassium Chloride 20 MEQ in Premix Bag 1 BAG IVPB SCH ×2 (20:48→23:35)
[2022-10-22] MEDS: Atorvastatin Calcium 40 MG TAB PO SCH (20:51)
[2022-10-22] MEDS ORDERED: Furosemide 100 MG/10 ML VIAL SLOW IVP SCH (21:00)
[2022-10-22] MEDS: LevoFLOXacin 750 mg/D5W 750 MG in Premix Bag 1 BAG IVPB SCH (22:12)
[2022-10-22] MEDS: dilTIAZem 125 MG in Sodium Chloride 0.9% 100 ML IVPB SCH (23:17)
[2022-10-23] MEDS: Ipratropium/Albuterol 3 ML NEB NEB PRN ×4 (01:00→18:52)
[2022-10-23 02:23] LABS: #Monocytes 0.9 10x3/uL (0.0-1.1); #Neutrophils 9.9 10x3/uL (1.5-8.4); %Basophils 0.2 % (0.0-2.0); %Eosinophils 0.2 % (0.0-6.0); %Lymphocytes 5.1 % (18.0-47.0); %Monocytes 7.3 % (0.0-10.0); %Neutrophils 82.2 % (40.0-75.0); Mean Corpuscular HGB CONC 31.1 g/dL (32.0-36.0); Mean Corpuscular Hemoglobin 25.9 pg (27.0-33.0); Mean Corpuscular Volume 83.2 fl (81.6-98.3); Mean Platelet Volume 8.7 fl (7.4-10.4); Platelet Count 388 10x3/uL (150-450); RBC Distribution Width 17.7 % (11.5-14.5); Red Blood Cell (RBC) Count 3.09 10x6/uL (3.90-5.03); White Blood Cell (WBC) Count 12.1 10x3/uL (3.5-10.5)
[2022-10-23 02:33] LABS: INR-International Normal Ratio 1.2; PTT 44.4 sec (22.0-33.0); Prothrombin Time 13.1 sec (9.5-12.1)
[2022-10-23 02:35] LABS: Vancomycin, Trough 12.5 ug/mL
[2022-10-23 02:38] LABS: Anion Gap 15 mmol/L (10-20); BUN (Urea Nitrogen) 10 mg/dL (9.8-20.1); Calc. Creatinine Clearance 131 mL/min (70-130); Calcium 8.2 mg/dL (7.8-10.44); Carbon Dioxide 27 mmol/L (23-31); Chloride 100 mmol/L (98-107); Estimated GFR 97; Glucose 136 mg/dL (80-115); Potassium 3.9 mmol/L (3.5-5.1); Sodium 138 mmol/L (136-145)
[2022-10-23] MEDS: VANCOMYCIN 1.25 GM/250 ML BAG 1.25 GM in Premix Bag 1 BAG IVPB SCH ×2 (03:11→21:08)
[2022-10-23] MEDS: Cefepime 2 GM in Sodium Chloride 0.9% 100 ML IVPB SCH ×2 (06:02→16:17)
[2022-10-23] MEDS: Potassium Chloride 20 MEQ TAB PO SCH (10:23)
[2022-10-23] MEDS: Aspirin 81 mg Enteric Coated Tablet PO SCH (10:24)
[2022-10-23] MEDS: Ferrous Sulfate 325 MG TAB PO SCH (10:24)
[2022-10-23] MEDS: dilTIAZem CD 180 MG CAP PO SCH (10:24)
[2022-10-23] MEDS ORDERED: Guaifenesin DM 100-10/5 ML UDCUP PO PRN (10:54)
[2022-10-23] MEDS ORDERED: Warfarin Sodium 10 MG TAB PO SCH (17:00)
[2022-10-23] MEDS: guaiFENesin ER 600 MG TAB PO SCH (21:03)
[2022-10-23] MEDS: Atorvastatin Calcium 40 MG TAB PO SCH (21:08)
[2022-10-23] MEDS: dilTIAZem 125 MG in Sodium Chloride 0.9% 100 ML IVPB SCH (21:13)
[2022-10-23] MEDS: LevoFLOXacin 750 mg/D5W 750 MG in Premix Bag 1 BAG IVPB SCH (23:04)
[2022-10-24] MEDS: Ipratropium/Albuterol 3 ML NEB NEB PRN (00:24)
[2022-10-24 05:20] LABS: Hemoglobin 8.1 g/dL (12.0-15.5); MDiff Complete? YES; Mean Corpuscular HGB CONC 31.4 g/dL (32.0-36.0); Mean Corpuscular Hemoglobin 26.4 pg (27.0-33.0); Mean Platelet Volume 9.3 fl (7.4-10.4); Platelet Count 431 10x3/uL (150-450); RBC Distribution Width 18.1 % (11.5-14.5); Red Blood Cell (RBC) Count 3.07 10x6/uL (3.90-5.03); White Blood Cell (WBC) Count 15.2 10x3/uL (3.5-10.5)
[2022-10-24 05:25] LABS: INR-International Normal Ratio 1.6; Prothrombin Time 17.2 sec (9.5-12.1)
[2022-10-24 05:29] LABS: Anion Gap 16 mmol/L (10-20); BUN (Urea Nitrogen) 11 mg/dL (9.8-20.1); Calc. Creatinine Clearance 133 mL/min (70-130); Calcium 8.3 mg/dL (7.8-10.44); Carbon Dioxide 26 mmol/L (23-31); Chloride 100 mmol/L (98-107); Estimated GFR 97; Glucose 107 mg/dL (80-115); Potassium 3.7 mmol/L (3.5-5.1); Sodium 138 mmol/L (136-145)
[2022-10-24] MEDS: Cefepime 2 GM in Sodium Chloride 0.9% 100 ML IVPB SCH ×2 (05:37→15:59)
[2022-10-24 06:17] LABS: Band 12 % (5-11); Lymphocytes 7 % (21-51); Metamyelocyte 2 % (0-0); Monocytes 8 % (0-10); Neutrophil 71 % (42-75)
[2022-10-24 06:19] LABS: Hypochromia MODERATE=16-30 cells (100X) (0-5/hpf); Polychromasia SLIGHT = 2-3 cells (100X) (0-2/hpf)
[2022-10-24] MEDS: Aspirin 81 mg Enteric Coated Tablet PO SCH (08:57)
[2022-10-24] MEDS: guaiFENesin ER 600 MG TAB PO SCH ×2 (08:57→23:38)
[2022-10-24] MEDS: dilTIAZem CD 180 MG CAP PO SCH (08:57)
[2022-10-24] MEDS: Potassium Chloride 20 MEQ TAB PO SCH (08:57)
[2022-10-24] MEDS: Ferrous Sulfate 325 MG TAB PO SCH (08:57)
[2022-10-24] MEDS ORDERED: Lorazepam 2 MG/ML VIAL SLOW IVP SCH (09:45)
[2022-10-24] MEDS ORDERED: Warfarin Sodium 5 MG TAB PO SCH ×2 (17:00)
[2022-10-24] MEDS: Atorvastatin Calcium 40 MG TAB PO SCH (23:38)
[2022-10-25] MEDS: dilTIAZem 125 MG in Sodium Chloride 0.9% 100 ML IVPB SCH (01:15)
[2022-10-25] MEDS ORDERED: Haloperidol Lactate 5 MG/ML VIAL SLOW IVP SCH (03:30)
[2022-10-25 05:15] LABS: Hemoglobin 8.3 g/dL (12.0-15.5); Mean Corpuscular HGB CONC 31.1 g/dL (32.0-36.0); Mean Corpuscular Hemoglobin 25.6 pg (27.0-33.0); Mean Corpuscular Volume 82.4 fl (81.6-98.3); Mean Platelet Volume 9.5 fl (7.4-10.4); Platelet Count 436 10x3/uL (150-450); RBC Distribution Width 18.5 % (11.5-14.5); Red Blood Cell (RBC) Count 3.24 10x6/uL (3.90-5.03); White Blood Cell (WBC) Count 17.3 10x3/uL (3.5-10.5)
[2022-10-25 05:21] LABS: Anion Gap 16 mmol/L (10-20); BUN (Urea Nitrogen) 12 mg/dL (9.8-20.1); Calc. Creatinine Clearance 129 mL/min (70-130); Calcium 8.6 mg/dL (7.8-10.44); Carbon Dioxide 24 mmol/L (23-31); Chloride 102 mmol/L (98-107); Estimated GFR 96; Glucose 102 mg/dL (80-115); Potassium 3.7 mmol/L (3.5-5.1); Sodium 138 mmol/L (136-145)
[2022-10-25 05:28] LABS: MDiff Complete? YES
[2022-10-25 05:33] LABS: INR-International Normal Ratio 2.8
[2022-10-25] MEDS: Cefepime 2 GM in Sodium Chloride 0.9% 100 ML IVPB SCH (06:13)
[2022-10-25 06:33] LABS: Band 13 % (5-11); Lymphocytes 7 % (21-51); Metamyelocyte 1 % (0-0); Monocytes 6 % (0-10); Myelocyte 3 % (0-0); Neutrophil 70 % (42-75)
[2022-10-25 06:35] LABS: Hypochromia SLIGHT = 6-15 cells (100X) (0-5/hpf)
[2022-10-25 06:36] LABS: Platelet Adequacy Comment Appears Adequate
[2022-10-25] MEDS: guaiFENesin ER 600 MG TAB PO SCH ×2 (08:32→21:44)
[2022-10-25] MEDS: Ferrous Sulfate 325 MG TAB PO SCH (08:32)
[2022-10-25] MEDS: Aspirin 81 mg Enteric Coated Tablet PO SCH (08:32)
[2022-10-25] MEDS: Potassium Chloride 20 MEQ TAB PO SCH (08:33)
[2022-10-25] MEDS: dilTIAZem CD 240 MG CAP PO SCH (08:33)
[2022-10-25] MEDS ORDERED: Piperacillin/Tazobactam 3.375 GM in Sodium Chloride 0.9% 100 ML IVPB SCH (10:15)
[2022-10-25 12:36] LABS: Legionella Urinary Ag Negative (Negative); Strep pneumo Urine Ag NEGATIVE (NEGATIVE)
[2022-10-25 13:06] LABS: Bilirubin Neg (Negative); Blood, Urine 25 (Negative); Clarity Slightly Cloudy (Clear); Glucose, Urine (Dipstick) Normal (Negative); Ketone, Urine 5 mg/dL (Negative); Leukocyte 25 (Negative); Nitrite Negative (Negative); Protein, Urine (Dipstick) 100 mg/dl (Neg-Trace)
[2022-10-25 13:21] LABS: Bacteria/HPF 4+ HPF (None Seen); Mucous/LPF 1+ LPF (<2+); RBC/HPF 0-3 HPF (0-3); Squamous Epithelial 0-3 HPF (0-3); WBC/HPF 0-3 HPF (0-3)
[2022-10-25] MEDS: Piperacillin/Tazobactam 3.375 GM in Sodium Chloride 0.9% 100 ML IVPB SCH ×2 (15:14→21:44)
[2022-10-25] MEDS ORDERED: Warfarin Sodium 2.5 MG TAB PO SCH (17:00)
[2022-10-25] MEDS ORDERED: Warfarin Sodium 5 MG TAB PO SCH (17:00)
[2022-10-25] MEDS: Atorvastatin Calcium 40 MG TAB PO SCH (21:44)
[2022-10-26] MEDS ORDERED: ALPRAZolam 0.5 MG TAB PO SCH (04:00)
[2022-10-26 04:49] LABS: Hemoglobin 7.7 g/dL (12.0-15.5); Mean Corpuscular HGB CONC 31.3 g/dL (32.0-36.0); Mean Corpuscular Hemoglobin 25.9 pg (27.0-33.0); Mean Corpuscular Volume 82.8 fl (81.6-98.3); Mean Platelet Volume 8.9 fl (7.4-10.4); Platelet Count 463 10x3/uL (150-450); RBC Distribution Width 18.3 % (11.5-14.5); Red Blood Cell (RBC) Count 2.97 10x6/uL (3.90-5.03); White Blood Cell (WBC) Count 19.9 10x3/uL (3.5-10.5)
[2022-10-26 04:50] LABS: MDiff Complete? YES
[2022-10-26 04:59] LABS: Anion Gap 17 mmol/L (10-20); BUN (Urea Nitrogen) 14 mg/dL (9.8-20.1); Calc. Creatinine Clearance 133 mL/min (70-130); Calcium 8.5 mg/dL (7.8-10.44); Carbon Dioxide 23 mmol/L (23-31); Chloride 102 mmol/L (98-107); Estimated GFR 97; Glucose 92 mg/dL (80-115); Potassium 3.8 mmol/L (3.5-5.1); Sodium 138 mmol/L (136-145)
[2022-10-26 05:05] LABS: INR-International Normal Ratio 3.9; Prothrombin Time 40.7 sec (9.5-12.1)
[2022-10-26 05:19] LABS: Band 4 % (5-11); Lymphocytes 4 % (21-51); Metamyelocyte 4 % (0-0); Monocytes 4 % (0-10); Neutrophil 84 % (42-75)
[2022-10-26 05:20] LABS: Anisocytosis SLIGHT = 6-15 cells (100X) (0-5/hpf); Hypochromia SLIGHT = 6-15 cells (100X) (0-5/hpf); Microcytosis SLIGHT = 6-15 cells (100X) (0-5/hpf); Platelet Adequacy Comment Appears Increased
[2022-10-26] MEDS: Piperacillin/Tazobactam 3.375 GM in Sodium Chloride 0.9% 100 ML IVPB SCH ×3 (05:46→21:55)
[2022-10-26] MEDS: Ipratropium/Albuterol 3 ML NEB NEB PRN (07:15)
[2022-10-26] MEDS: Aspirin 81 mg Enteric Coated Tablet PO SCH (08:28)
[2022-10-26] MEDS: Ferrous Sulfate 325 MG TAB PO SCH (08:28)
[2022-10-26] MEDS: guaiFENesin ER 600 MG TAB PO SCH ×2 (08:28→22:04)
[2022-10-26] MEDS: Potassium Chloride 20 MEQ TAB PO SCH (08:28)
[2022-10-26] MEDS: dilTIAZem CD 240 MG CAP PO SCH (08:28)
[2022-10-26] MEDS ORDERED: Phytonadione 10 MG/ML AMP PO SCH (09:15)
[2022-10-26] MEDS: Atorvastatin Calcium 40 MG TAB PO SCH (22:05)
[2022-10-27 03:56] LABS: #Basophils 0.1 10x3/uL (0.0-0.2); #Eosinphils 0.2 10x3/uL (0.0-0.5); #Monocytes 0.8 10x3/uL (0.0-1.1); #Neutrophils 16.3 10x3/uL (1.5-8.4); %Basophils 0.4 % (0.0-2.0); %Eosinophils 1.1 % (0.0-6.0); %Lymphocytes 5.6 % (18.0-47.0); %Monocytes 4.2 % (0.0-10.0); %Neutrophils 84.5 % (40.0-75.0); Hemoglobin 8.7 g/dL (12.0-15.5); Mean Corpuscular HGB CONC 30.4 g/dL (32.0-36.0); Mean Corpuscular Hemoglobin 25.7 pg (27.0-33.0); Mean Corpuscular Volume 84.6 fl (81.6-98.3); Mean Platelet Volume 8.7 fl (7.4-10.4); Platelet Count 464 10x3/uL (150-450); RBC Distribution Width 18.7 % (11.5-14.5); Red Blood Cell (RBC) Count 3.38 10x6/uL (3.90-5.03); White Blood Cell (WBC) Count 19.3 10x3/uL (3.5-10.5)
[2022-10-27 04:05] LABS: INR-International Normal Ratio 2.2; Prothrombin Time 23.7 sec (9.5-12.1)
[2022-10-27 04:10] LABS: Anion Gap 16 mmol/L (10-20); BUN (Urea Nitrogen) 11 mg/dL (9.8-20.1); Calc. Creatinine Clearance 140 mL/min (70-130); Calcium 8.7 mg/dL (7.8-10.44); Carbon Dioxide 25 mmol/L (23-31); Chloride 105 mmol/L (98-107); Estimated GFR 98; Glucose 85 mg/dL (80-115); Sodium 142 mmol/L (136-145)
[2022-10-27] MEDS: Piperacillin/Tazobactam 3.375 GM in Sodium Chloride 0.9% 100 ML IVPB SCH ×3 (05:52→21:20)
[2022-10-27] MEDS ORDERED: ALPRAZolam 0.25 MG TAB PO SCH (08:00)
[2022-10-27] MEDS: Potassium Chloride 20 MEQ TAB PO SCH (08:45)
[2022-10-27] MEDS: Aspirin 81 mg Enteric Coated Tablet PO SCH (09:37)
[2022-10-27] MEDS: guaiFENesin ER 600 MG TAB PO SCH ×2 (09:38→21:21)
[2022-10-27] MEDS: Ferrous Sulfate 325 MG TAB PO SCH (09:38)
[2022-10-27] MEDS: dilTIAZem CD 240 MG CAP PO SCH (09:38)
[2022-10-27] MEDS ORDERED: Warfarin Sodium 2.5 MG TAB PO SCH (17:00)
[2022-10-27] MEDS: Atorvastatin Calcium 40 MG TAB PO SCH (21:20)
[2022-10-28 03:35] LABS: Hemoglobin 8.8 g/dL (12.0-15.5); Mean Corpuscular HGB CONC 30.6 g/dL (32.0-36.0); Mean Corpuscular Hemoglobin 25.9 pg (27.0-33.0); Mean Corpuscular Volume 84.7 fl (81.6-98.3); Mean Platelet Volume 8.8 fl (7.4-10.4); Platelet Count 472 10x3/uL (150-450); RBC Distribution Width 19.2 % (11.5-14.5); White Blood Cell (WBC) Count 18.8 10x3/uL (3.5-10.5)
[2022-10-28 03:42] LABS: Prothrombin Time 20.8 sec (9.5-12.1)
[2022-10-28 03:47] LABS: Anion Gap 15 mmol/L (10-20); BUN (Urea Nitrogen) 9 mg/dL (9.8-20.1); Calc. Creatinine Clearance 137 mL/min (70-130); Calcium 8.7 mg/dL (7.8-10.44); Carbon Dioxide 26 mmol/L (23-31); Chloride 104 mmol/L (98-107); Estimated GFR 98; Glucose 102 mg/dL (80-115); Potassium 3.7 mmol/L (3.5-5.1); Sodium 141 mmol/L (136-145)
[2022-10-28] MEDS: Piperacillin/Tazobactam 3.375 GM in Sodium Chloride 0.9% 100 ML IVPB SCH ×3 (05:46→22:46)
[2022-10-28] MEDS ORDERED: Phytonadione 10 MG/ML AMP PO SCH ×2 (08:30→18:15)
[2022-10-28] MEDS: Potassium Chloride 20 MEQ TAB PO SCH (09:13)
[2022-10-28] MEDS: dilTIAZem CD 300 MG CAP PO SCH (09:14)
[2022-10-28] MEDS: Aspirin 81 mg Enteric Coated Tablet PO SCH (09:14)
[2022-10-28] MEDS: Ferrous Sulfate 325 MG TAB PO SCH (09:15)
[2022-10-28] MEDS: guaiFENesin ER 600 MG TAB PO SCH ×2 (09:15→22:47)
[2022-10-28] MEDS ORDERED: Metoprolol Tartrate 5 MG/5 ML VIAL IVP SCH (13:00)
[2022-10-28] MEDS: Atorvastatin Calcium 40 MG TAB PO SCH (22:47)
[2022-10-29 04:07] LABS: #Basophils 0.1 10x3/uL (0.0-0.2); #Eosinphils 0.2 10x3/uL (0.0-0.5); #Monocytes 0.7 10x3/uL (0.0-1.1); #Neutrophils 13.2 10x3/uL (1.5-8.4); %Basophils 0.6 % (0.0-2.0); %Eosinophils 1.2 % (0.0-6.0); %Lymphocytes 6.3 % (18.0-47.0); %Monocytes 4.7 % (0.0-10.0); %Neutrophils 84.7 % (40.0-75.0); Hemoglobin 9.6 g/dL (12.0-15.5); Mean Corpuscular HGB CONC 29.9 g/dL (32.0-36.0); Mean Platelet Volume 8.9 fl (7.4-10.4); Platelet Count 395 10x3/uL (150-450); RBC Distribution Width 19.3 % (11.5-14.5); Red Blood Cell (RBC) Count 3.69 10x6/uL (3.90-5.03); White Blood Cell (WBC) Count 15.5 10x3/uL (3.5-10.5)
[2022-10-29 04:18] LABS: INR-International Normal Ratio 1.9; Prothrombin Time 20.5 sec (9.5-12.1)
[2022-10-29 04:19] LABS: Anion Gap 12 mmol/L (10-20); BUN (Urea Nitrogen) 8 mg/dL (9.8-20.1); Calc. Creatinine Clearance 168 mL/min (70-130); Calcium 8.7 mg/dL (7.8-10.44); Carbon Dioxide 25 mmol/L (23-31); Chloride 104 mmol/L (98-107); Estimated GFR 103; Glucose 87 mg/dL (80-115); Potassium 3.7 mmol/L (3.5-5.1); Sodium 137 mmol/L (136-145)
[2022-10-29 05:24] LABS: Hypochromia SLIGHT = 6-15 cells (100X) (0-5/hpf)
[2022-10-29 05:25] LABS: Platelet Adequacy Comment Appears Adequate
[2022-10-29] MEDS: Piperacillin/Tazobactam 3.375 GM in Sodium Chloride 0.9% 100 ML IVPB SCH ×2 (06:15→13:22)
[2022-10-29] MEDS ORDERED: dilTIAZem 25 MG/5 ML VIAL SLOW IVP SCH (06:30)
[2022-10-29] MEDS: Potassium Chloride 20 MEQ TAB PO SCH (09:46)
[2022-10-29] MEDS: Amlodipine 5 MG TAB PO SCH (09:48)
[2022-10-29] MEDS: guaiFENesin ER 600 MG TAB PO SCH ×2 (09:49→21:23)
[2022-10-29] MEDS: Aspirin 81 mg Enteric Coated Tablet PO SCH (09:49)
[2022-10-29] MEDS: dilTIAZem CD 300 MG CAP PO SCH (09:50)
[2022-10-29] MEDS ORDERED: Warfarin Sodium 2.5 MG TAB PO SCH (17:00)
[2022-10-29] MEDS: Atorvastatin Calcium 40 MG TAB PO SCH (21:23)
[2022-10-29] MEDS: Amoxicillin/Potassium Clav 875 MG TAB PO SCH (21:23)
[2022-10-30 05:10] LABS: #Basophils 0.1 10x3/uL (0.0-0.2); #Eosinphils 0.1 10x3/uL (0.0-0.5); #Monocytes 0.8 10x3/uL (0.0-1.1); #Neutrophils 15.7 10x3/uL (1.5-8.4); %Basophils 0.4 % (0.0-2.0); %Eosinophils 0.7 % (0.0-6.0); %Lymphocytes 5.8 % (18.0-47.0); %Monocytes 4.4 % (0.0-10.0); %Neutrophils 86.4 % (40.0-75.0); Hemoglobin 8.4 g/dL (12.0-15.5); Mean Corpuscular HGB CONC 30.3 g/dL (32.0-36.0); Mean Corpuscular Hemoglobin 26.2 pg (27.0-33.0); Mean Corpuscular Volume 86.3 fl (81.6-98.3); Platelet Count 453 10x3/uL (150-450); Red Blood Cell (RBC) Count 3.21 10x6/uL (3.90-5.03); White Blood Cell (WBC) Count 18.2 10x3/uL (3.5-10.5)
[2022-10-30 05:16] LABS: Anion Gap 14 mmol/L (10-20); BUN (Urea Nitrogen) 8 mg/dL (9.8-20.1); Calc. Creatinine Clearance 175 mL/min (70-130); Calcium 8.7 mg/dL (7.8-10.44); Carbon Dioxide 24 mmol/L (23-31); Chloride 99 mmol/L (98-107); Estimated GFR 104; Glucose 65 mg/dL (80-115); Potassium 4.3 mmol/L (3.5-5.1); Sodium 133 mmol/L (136-145)
[2022-10-30 05:17] LABS: INR-International Normal Ratio 1.7; Prothrombin Time 17.6 sec (9.5-12.1)
[2022-10-30] MEDS: Aspirin 81 mg Enteric Coated Tablet PO SCH (08:41)
[2022-10-30] MEDS: guaiFENesin ER 600 MG TAB PO SCH ×2 (08:41→23:09)
[2022-10-30] MEDS: Potassium Chloride 20 MEQ TAB PO SCH (08:41)
[2022-10-30] MEDS: dilTIAZem CD 300 MG CAP PO SCH (08:41)
[2022-10-30] MEDS: Amlodipine 5 MG TAB PO SCH (08:42)
[2022-10-30] MEDS: Amoxicillin/Potassium Clav 875 MG TAB PO SCH ×2 (08:42→23:09)
[2022-10-30] MEDS: Acetaminophen 325 MG TAB PO SCH ×3 (11:26→23:09)
[2022-10-30] MEDS ORDERED: hydrOXYzine 25 MG TAB PO SCH (11:30)
[2022-10-30] MEDS ORDERED: Warfarin Sodium 5 MG TAB PO SCH (17:00)
[2022-10-30] MEDS: Atorvastatin Calcium 40 MG TAB PO SCH (23:09)
[2022-10-31 05:44] LABS: #Basophils 0.1 10x3/uL (0.0-0.2); #Eosinphils 0.1 10x3/uL (0.0-0.5); #Monocytes 0.8 10x3/uL (0.0-1.1); #Neutrophils 10.1 10x3/uL (1.5-8.4); %Basophils 0.4 % (0.0-2.0); %Eosinophils 0.8 % (0.0-6.0); %Lymphocytes 5.6 % (18.0-47.0); %Monocytes 6.5 % (0.0-10.0); %Neutrophils 85.4 % (40.0-75.0); Mean Corpuscular HGB CONC 30.6 g/dL (32.0-36.0); Mean Corpuscular Hemoglobin 26.1 pg (27.0-33.0); Mean Corpuscular Volume 85.4 fl (81.6-98.3); Mean Platelet Volume 9.7 fl (7.4-10.4); Platelet Count 303 10x3/uL (150-450); RBC Distribution Width 19.4 % (11.5-14.5); Red Blood Cell (RBC) Count 3.83 10x6/uL (3.90-5.03); White Blood Cell (WBC) Count 11.8 10x3/uL (3.5-10.5)
[2022-10-31 06:10] LABS: Anion Gap 21 mmol/L (10-20); BUN (Urea Nitrogen) 7 mg/dL (9.8-20.1); Calc. Creatinine Clearance 175 mL/min (70-130); Calcium 8.6 mg/dL (7.8-10.44); Carbon Dioxide 17 mmol/L (23-31); Chloride 100 mmol/L (98-107); Estimated GFR 104; Glucose 58 mg/dL (80-115); Sodium 132 mmol/L (136-145)
[2022-10-31 08:42] LABS: INR-International Normal Ratio 2.2; Prothrombin Time 23.5 sec (9.5-12.1)
[2022-10-31] MEDS: Acetaminophen 325 MG TAB PO SCH ×3 (09:00→16:00)
[2022-10-31] MEDS: Potassium Chloride 20 MEQ TAB PO SCH (09:04)
[2022-10-31] MEDS: Amlodipine 5 MG TAB PO SCH (09:05)
[2022-10-31] MEDS: Aspirin 81 mg Enteric Coated Tablet PO SCH (09:05)
[2022-10-31] MEDS: guaiFENesin ER 600 MG TAB PO SCH ×2 (09:05→22:49)
[2022-10-31] MEDS: dilTIAZem CD 300 MG CAP PO SCH (09:06)
[2022-10-31] MEDS ORDERED: Haloperidol Lactate 5 MG/ML VIAL IM SCH (09:30)
[2022-10-31] MEDS: Amoxicillin/Potassium Clav 875 MG TAB PO SCH ×2 (10:53→22:15)
[2022-10-31 12:20] LABS: Potassium 3.8 mmol/L (3.5-5.1)
[2022-10-31] MEDS: Warfarin Sodium 2.5 MG TAB PO SCH (16:00)
[2022-10-31] MEDS ORDERED: Dextrose 50% Abboject 50 ML SYRINGE ONE (16:02)
[2022-10-31] MEDS ORDERED: QUEtiapine 25 MG TAB PO SCH (20:15)
[2022-10-31] MEDS: Atorvastatin Calcium 40 MG TAB PO SCH (22:14)
[2022-11-01] MEDS: Acetaminophen 325 MG TAB PO SCH ×5 (00:12→22:55)
[2022-11-01] MEDS ORDERED: Lorazepam 2 MG/ML VIAL SLOW IVP SCH (01:30)
[2022-11-01 05:45] LABS: #Basophils 0.1 10x3/uL (0.0-0.2); #Eosinphils 0.1 10x3/uL (0.0-0.5); #Monocytes 0.9 10x3/uL (0.0-1.1); #Neutrophils 8.8 10x3/uL (1.5-8.4); %Basophils 0.6 % (0.0-2.0); %Eosinophils 1.1 % (0.0-6.0); %Lymphocytes 7.1 % (18.0-47.0); %Monocytes 7.9 % (0.0-10.0); %Neutrophils 81.6 % (40.0-75.0); Hemoglobin 9.4 g/dL (12.0-15.5); Mean Corpuscular HGB CONC 30.2 g/dL (32.0-36.0); Mean Corpuscular Hemoglobin 25.6 pg (27.0-33.0); Mean Corpuscular Volume 84.7 fl (81.6-98.3); Mean Platelet Volume 8.9 fl (7.4-10.4); Platelet Count 395 10x3/uL (150-450); Red Blood Cell (RBC) Count 3.67 10x6/uL (3.90-5.03); White Blood Cell (WBC) Count 10.8 10x3/uL (3.5-10.5)
[2022-11-01 05:54] LABS: Anion Gap 15 mmol/L (10-20); BUN (Urea Nitrogen) 8 mg/dL (9.8-20.1); Calc. Creatinine Clearance 175 mL/min (70-130); Calcium 8.7 mg/dL (7.8-10.44); Carbon Dioxide 23 mmol/L (23-31); Chloride 101 mmol/L (98-107); Estimated GFR 104; Glucose 107 mg/dL (80-115); Potassium 3.8 mmol/L (3.5-5.1); Sodium 135 mmol/L (136-145)
[2022-11-01 06:04] LABS: Prothrombin Time 31.4 sec (9.5-12.1)
[2022-11-01] MEDS: dilTIAZem CD 300 MG CAP PO SCH (08:39)
[2022-11-01] MEDS: Amoxicillin/Potassium Clav 875 MG TAB PO SCH ×2 (08:39→22:55)
[2022-11-01] MEDS: Amlodipine 5 MG TAB PO SCH (08:39)
[2022-11-01] MEDS: Aspirin 81 mg Enteric Coated Tablet PO SCH (08:39)
[2022-11-01] MEDS: guaiFENesin ER 600 MG TAB PO SCH ×2 (08:40→22:56)
[2022-11-01] MEDS: Potassium Chloride 20 MEQ TAB PO SCH (08:40)
[2022-11-01] MEDS: Ipratropium/Albuterol 3 ML NEB NEB PRN (10:42)
[2022-11-01] MEDS ORDERED: metroNIDAZOLE 500 MG TAB PO SCH (13:00)
[2022-11-01] MEDS ORDERED: Haloperidol Lactate 5 MG/ML VIAL IM SCH (15:00)
[2022-11-01] MEDS: metroNIDAZOLE 500 MG TAB PO SCH (15:05)
[2022-11-01] MEDS: Warfarin Sodium 2.5 MG TAB PO SCH (15:05)
[2022-11-01 18:21] LABS: Chlam.trachomatis by PCR,Urine Not Detected (NotDetected); GC N.gonorrhoeae PCR,UrineVOID Not Detected (NotDetected)
[2022-11-01] MEDS: Atorvastatin Calcium 40 MG TAB PO SCH (22:56)
[2022-11-02 05:03] LABS: #Eosinphils 0.1 10x3/uL (0.0-0.5); #Monocytes 0.8 10x3/uL (0.0-1.1); #Neutrophils 6.2 10x3/uL (1.5-8.4); %Basophils 0.4 % (0.0-2.0); %Eosinophils 1.3 % (0.0-6.0); %Lymphocytes 13.3 % (18.0-47.0); %Monocytes 9.6 % (0.0-10.0); %Neutrophils 74.6 % (40.0-75.0); Mean Corpuscular HGB CONC 30.9 g/dL (32.0-36.0); Mean Corpuscular Hemoglobin 25.8 pg (27.0-33.0); Mean Corpuscular Volume 83.4 fl (81.6-98.3); Mean Platelet Volume 9.4 fl (7.4-10.4); Platelet Count 456 10x3/uL (150-450); RBC Distribution Width 19.3 % (11.5-14.5); Red Blood Cell (RBC) Count 3.49 10x6/uL (3.90-5.03); White Blood Cell (WBC) Count 8.3 10x3/uL (3.5-10.5)
[2022-11-02 05:05] LABS: INR-International Normal Ratio 3.1; Prothrombin Time 32.9 sec (9.5-12.1)
[2022-11-02 05:18] LABS: Anion Gap 17 mmol/L (10-20); BUN (Urea Nitrogen) 13 mg/dL (9.8-20.1); Calc. Creatinine Clearance 156 mL/min (70-130); Calcium 8.8 mg/dL (7.8-10.44); Carbon Dioxide 24 mmol/L (23-31); Chloride 101 mmol/L (98-107); Estimated GFR 101; Glucose 102 mg/dL (80-115); Potassium 4.7 mmol/L (3.5-5.1); Sodium 137 mmol/L (136-145)
[2022-11-02 05:20] LABS: HIV (1/2) Antibody/Antigen Non-Reactive (NonReactive); HIV 1/2 INDEX 0.06 S/CO (<1.00); Syphilis Antibody Nonreactive (Nonreactive); Syphilis Antibody Index 0.05 S/CO (<1.00 Non-Reactive)
[2022-11-02] MEDS: Acetaminophen 325 MG TAB PO SCH ×4 (06:08→22:24)
[2022-11-02] MEDS: Amoxicillin/Potassium Clav 875 MG TAB PO SCH ×2 (08:42→22:24)
[2022-11-02] MEDS: Amlodipine 5 MG TAB PO SCH (08:43)
[2022-11-02] MEDS: Potassium Chloride 20 MEQ TAB PO SCH (08:43)
[2022-11-02] MEDS: guaiFENesin ER 600 MG TAB PO SCH ×2 (08:43→22:24)
[2022-11-02] MEDS: Aspirin 81 mg Enteric Coated Tablet PO SCH (08:43)
[2022-11-02] MEDS: metroNIDAZOLE 500 MG TAB PO SCH ×2 (08:43→22:25)
[2022-11-02] MEDS: dilTIAZem CD 300 MG CAP PO SCH (08:43)
[2022-11-02] MEDS: Atorvastatin Calcium 40 MG TAB PO SCH (22:24)
[2022-11-03 05:18] LABS: #Basophils 0.1 10x3/uL (0.0-0.2); #Eosinphils 0.1 10x3/uL (0.0-0.5); #Monocytes 0.8 10x3/uL (0.0-1.1); #Neutrophils 6.4 10x3/uL (1.5-8.4); %Basophils 0.6 % (0.0-2.0); %Eosinophils 1.2 % (0.0-6.0); %Lymphocytes 10.4 % (18.0-47.0); %Monocytes 9.8 % (0.0-10.0); %Neutrophils 77.4 % (40.0-75.0); Hemoglobin 9.5 g/dL (12.0-15.5); Mean Corpuscular HGB CONC 29.9 g/dL (32.0-36.0); Mean Corpuscular Volume 86.9 fl (81.6-98.3); Mean Platelet Volume 9.3 fl (7.4-10.4); Platelet Count 404 10x3/uL (150-450); RBC Distribution Width 19.6 % (11.5-14.5); Red Blood Cell (RBC) Count 3.66 10x6/uL (3.90-5.03); White Blood Cell (WBC) Count 8.2 10x3/uL (3.5-10.5)
[2022-11-03] MEDS: Acetaminophen 325 MG TAB PO SCH ×2 (05:29→11:32)
[2022-11-03 05:33] LABS: INR-International Normal Ratio 2.2; Prothrombin Time 23.1 sec (9.5-12.1)
[2022-11-03 05:39] LABS: Anion Gap 16 mmol/L (10-20); BUN (Urea Nitrogen) 10 mg/dL (9.8-20.1); Calc. Creatinine Clearance 175 mL/min (70-130); Calcium 9.2 mg/dL (7.8-10.44); Carbon Dioxide 22 mmol/L (23-31); Chloride 102 mmol/L (98-107); Estimated GFR 104; Glucose 76 mg/dL (80-115); Potassium 4.3 mmol/L (3.5-5.1); Sodium 136 mmol/L (136-145)
[2022-11-03] MEDS: metroNIDAZOLE 500 MG TAB PO SCH (08:39)
[2022-11-03] MEDS: Aspirin 81 mg Enteric Coated Tablet PO SCH (08:39)
[2022-11-03] MEDS: guaiFENesin ER 600 MG TAB PO SCH (08:39)
[2022-11-03] MEDS: dilTIAZem CD 300 MG CAP PO SCH (08:40)
[2022-11-03] MEDS: Potassium Chloride 20 MEQ TAB PO SCH (08:40)
[2022-11-03] MEDS: Amoxicillin/Potassium Clav 875 MG TAB PO SCH (08:40)
[2022-11-03] MEDS: Amlodipine 5 MG TAB PO SCH (08:40)
[2022-11-03 09:24] LABS: INR-International Normal Ratio 2.2
[2022-11-03 12:35] VITALS: BP 127/68; TEMP 98.4
[2022-11-03] MEDS ORDERED: Warfarin Sodium 2.5 MG TAB PO SCH (17:00)
== END 2022-11-03 16:47 | DRG 299 ==
LOC: CSHERS 11:57 → CSHTELE 16:32 → INTOOBSV 16:32 → OBSVTOIN 10-21 12:12
PROVIDERS: ADMIT Internal Medicine; ATTEND Internal Medicine Geriatric Medicine
DX: E11.51 Type 2 diabetes mellitus with diabetic peripheral angiopathy without gangrene (principal); G93.41 Metabolic encephalopathy; J69.0 Pneumonitis due to inhalation of food and vomit; I48.11 Longstanding persistent atrial fibrillation; I48.92 Unspecified atrial flutter; L03.115 Cellulitis of right lower limb; I87.2 Venous insufficiency (chronic) (peripheral); E87.6 Hypokalemia; Y95 Nosocomial condition; I48.0 Paroxysmal atrial fibrillation; I10 Essential (primary) hypertension; E66.9 Obesity, unspecified; E78.2 Mixed hyperlipidemia; Z68.34 Body mass index [BMI] 34.0-34.9, adult; Z79.899 Other long term (current) drug therapy; Z20.822 Contact with and (suspected) exposure to COVID-19; N89.8 Other specified noninflammatory disorders of vagina; A59.01 Trichomonal vulvovaginitis; S81.801A Unspecified open wound, right lower leg, initial encounter; Z80.42 Family history of malignant neoplasm of prostate; Z91.018 Allergy to other foods; Z83.3 Family history of diabetes mellitus; Z82.49 Family history of ischemic heart disease and other diseases of the circulatory system; Z90.710 Acquired absence of both cervix and uterus; R79.1 Abnormal coagulation profile
CPT/HCPCS: 36415; 36416; 70450; 71045; 80048; 80053; 80202; 81003; 81015; 83605; 83735; 85025; 85027; 85610; 85652; 85730; 86140; 86780; 87040; 87070; 87081; 87205; 87389; 87449; 87480; 87491; 87510; 87591; 87635; 87660; 87804; 87899; 93005; 93010; 93923; 94640; 94667; 94668; 94760; 94762; 96372; 96374; 96375; 96376; 97139; G0378; J0692; J1630; J1650; J1940; J1956; J2060; J2270; J2405; J2543; J3370; J3430; J3475; J3480; J3490; J7050; J7620; J7999